=== PATIENT | male | born 1965 | race Caucasian/White ===

== ENCOUNTER 2018-07-24 19:30 | Outpatient (CLI) | payer BC | END 2018-07-24 19:31 | disposition home or self-care (01) | LOC: SLEEPLAB 19:30 | PROVIDERS: ATTEND Internal Medicine | DX: G47.33 Obstructive sleep apnea (adult) (pediatric) (principal) | CPT/HCPCS: 95811 ==

== ENCOUNTER 2018-08-28 06:05 | Day surgery (SDC) | payer BC ==
[2018-08-27 14:48] VITALS: BMI 38.5
--- NOTE | 2018-08-27 23:52 | HP ---
HISTORY OF PRESENT ILLNESS: This is a 52-year-old male, comes for a colonoscopy for colon cancer screening. The patient has no specific GI symptoms. There is no family history of colon cancer. ALLERGIES: NONE. SOCIAL HISTORY: The patient does not smoke, but drinks alcohol socially. MEDICAL ILLNESS: 1. Obesity. 2. after laceration in the past. PHYSICAL EXAMINATION: GENERAL: He is obese. VITAL SIGNS: His weight is HEENT: Conjunctivae clear. CARDIOVASCULAR SYSTEM: First and second heart sounds heard. LUNGS: Clear to auscultation. ABDOMEN: Soft. No organomegaly. No tenderness. No masses. EXTREMITIES: Reveal no edema. ADMITTING DIAGNOSIS: A 52-year-old male comes for a colonoscopy for colon cancer screening. Job ID: [id number]
--- NOTE | 2018-08-28 11:23 | OP ---
DATE OF PROCEDURE: 08/28/2018 OPERATIVE PROCEDURE: Colonoscopy. PREOPERATIVE DIAGNOSIS: A 52-year-old male, undergoing colonoscopy for colon cancer screening. POSTOPERATIVE DIAGNOSES: 1. Normal colonoscopy, up to hepatic flexure. The right colon not visualized. 2. Hemorrhoids. DESCRIPTION OF PROCEDURE: The patient was placed on his left lateral position and was given sedation by Anesthesia Department. A rectal exam was done before the scope was advanced into the rectum. No lesions felt on rectal exam. A Pentax video colonoscope was introduced into the rectum and advanced all the way into the transverse colon. The exam was very difficult because of body habitus. Abdominal compression was used. It was still very difficult to advance the scope all the way to the right colon. The patient was coming off his back. Again, abdominal compression was advanced and try to maneuver the scope. Scope tip was looping. Infra-abdominal compression because of body habitus, the scope could not be straightened. The scope was advanced all the way into the proximal transverse colon and hepatic flexure area. This hepatic flexure region at 1.6 cm that was the maximum length of the scope. The scope was withdrawn back several times back and forth and tried to advance the scope. I could advance the scope all the way into the cecum. Withdrawal of scope from the proximal transverse colon down the distal transverse colon, splenic flexure, descending colon, sigmoid colon, no pathology. Rectal hemorrhoids. ENDOSCOPIC IMPRESSION: Incomplete colonoscopy. DISCHARGE PLANNING: Mr. Jose Hill is a 52-year-old male came for colonoscopy for colon cancer screening. The colonoscopy was unsuccessful as scope could not be advanced into the right colon. I could see the transillumination around the right lumbar region was corresponding to the hepatic flexure. Further abdominal compression and change in position numerous maneuvers, the scope could never be advanced into the right colon. The plan is obtain a barium enema in the near future or the patient come back for repeat colonoscopy sometime in the future. Job ID: [id number]
[2018-08-28] MEDS ORDERED: Lidocaine 1% PF 5 ML VIAL ONE (12:16)
[2018-08-28] MEDS ORDERED: PHENYLEPHRINE-NS 100 MCG/ML 10 ML SYRINGE ONE (12:16)
[2018-08-28] MEDS ORDERED: PROPOFOL 200 MG/20 ML VIAL ONE (12:16)
== END 2018-08-28 09:43 | disposition home or self-care (01) ==
LOC: SDC 06:05
PROVIDERS: ATTEND Internal Medicine Gastroenterology
PROC: 0DJD8ZZ Inspection of Lower Intestinal Tract, Via Natural or Artificial Opening Endoscopic (ICD-10-PCS; principal; 2018-08-28)
DX: Z12.11 Encounter for screening for malignant neoplasm of colon (principal); K64.4 Residual hemorrhoidal skin tags; E66.9 Obesity, unspecified; Z68.38 Body mass index [BMI] 38.0-38.9, adult
CPT/HCPCS: J2001; J2704